=== PATIENT | female | born 1990 | race Caucasian/White ===

== ENCOUNTER 2022-10-31 17:40 | Emergency (ER) | payer BC ==
[~2022-10-31] VITALS: Ht 154.9 cm; Wt 68.0 kg
[2022-10-31] MEDS ORDERED: DICLOFENAC SODI75 MG PO (19:26)
== END 2022-10-31 20:41 | disposition home or self-care (01) ==
LOC: ER 17:40
DX: M25.531 Pain in right wrist (principal); Z88.0 Allergy status to penicillin; M25.431 Effusion, right wrist